=== PATIENT | male | born 1960 ===

== ENCOUNTER 2016-10-23 17:41 | Inpatient (IN) ==
--- NOTE | 2016-10-23 18:47 | Emergency Department Note ---
Naif Dos Santos Brittany, am scribing for, and in the presence of, Sena Mosqueda DO 18:46. IPanda Debra, DO, personally performed the services described in this documentation, ascribed by Rosana Disla in my presence, and it is both accurate and complete 847 . Arrival - Arrival Chief Complaint: Extremity Problem Stated Complaint: diabetic foot ulcer ED Nursing Triage Note: Arrived via ems from [facility].Pt reports having diabetic foot ulcer to left foot x 3 wks. Pt with hx of dm, htn. Pt reports swelling and drainage from left foot.States he was trying to heal it at home. Mode of Arrival: Stretcher Limitations: No Limitations Source: Patient, RN Notes Reviewed Time Seen by Provider: 10/23/16 18:29 - History of Present Illness HPI Narrative: Patient is a 56 y/o Lovely male presenting to the ED by EMS from [facility] for further evaluation of Diabetic Ulcer to the left foot. Patient c/o pain, swelling, and drainage to the left foot with an onset of 3 weeks. Patient reports he has been having this for about 3 weeks. He notes that he does not recall what he may have stepped on to cause a wound to his left foot. He states that he did not seek medical attention when symptoms first onset because he thought wound would heal on its own. He reports that he did have ETOH this morning. While at [facility] patient's WBC count was 17,000. Patient has a past medical history of Diabetes Mellitus, HTN. No other complaint/pain in the ED at this time. Allergies/Adverse Reactions: Allergies Allergy/AdvReac Type Severity Reaction Status Date / Time aspirin Allergy ANAPHYLAXIS Verified 06/18/16 12:53 Home Medications: Home Medications Medication Instructions Recorded Confirmed Type Lisinopril [Prinivil] 20 mg PO DAILY #30 tablet 06/18/16 Rx amLODIPine [Norvasc] 5 mg PO DAILY #30 tablet 06/18/16 Rx metFORMIN [Glucophage] 500 mg PO BID W/MEALS #60 tablet 06/18/16 Rx Review of System - Review of System 12 point system: reviewed and no additional remarkable complaints except as stated - Review of System Musculoskeletal: Present: joint swelling, leg pain (left foot) Skin: Present: change in color (erythema left foot) Medical,Surgical,& Family Hx - Medical History Cardio: History of: Hypertension Endocrine: History of: Diabetes Mellitus (NIDDM) - Social History Smoking Status: Unknown if ever smoked Frequency of Alcohol Use: None Type of Drug Use: None Exam Vital Signs: Vital Signs Temperature 98.0 F 10/23/16 17:41 Pulse Rate 110 H 10/23/16 18:43 Respiratory Rate 16 10/23/16 18:43 Blood Pressure 129/78 10/23/16 18:43 O2 Sat by Pulse Oximetry 100 10/23/16 18:43 - General General appearance: alert, in no apparent distress - Head Head exam: Present: atraumatic, normocephalic - Eye Eye exam: Present: PERRL, EOMI - ENT ENT exam: Present: mucous membranes moist, TM's normal bilaterally - Neck Neck exam: Present: full ROM, trachea midline. Absent: tenderness - Chest Chest inspection: Present: symmetric chest wall rise. Absent: tenderness - Respiratory Respiratory exam: Present: normal lung sounds bilaterally. Absent: rales, rhonchi, wheezes - Cardiovascular Cardiovascular exam: Present: normal rhythm, tachycardia, normal heart sounds. Absent: regular rate, murmur, rubs, gallop - Abdominal Exam Abdominal exam: Present: soft, normal bowel sounds. Absent: distention, tenderness - Extremities Exam Extremities exam: Present: full ROM - Expanded Lower Left Lower Foot/toe exam: Present: full ROM, erythema, other (malodorous, decubiti) - Back Exam Back exam: Present: full ROM. Absent: tenderness - Neurological Exam Neurological exam: Present: alert, oriented X3 - Psychiatric Psychiatric exam: Present: normal affect, normal mood - Skin Skin exam: Present: warm, dry Course Course Narrative: spoke with Dr High who agrees to admission. will have hospitalist as consult on pt for diabetes. Disposition Clinical Impression: Diabetes mellitus with foot ulcer and gangrene Case discussed with: patient Disposition: Still a Patient Condition: Stable Time of Disposition: 18:47
[2016-10-23] MEDS ORDERED: ACETAMINOPHEN 325 MG TABLET PO PRN (18:48)
[2016-10-23] MEDS ORDERED: ONDANSETRON 4 MG/2 ML VIAL IV PRN (18:48)
[2016-10-23] MEDS ORDERED: HYDROmorphone 2 MG/1 ML VIAL IV PRN (18:48)
--- NOTE | 2016-10-23 19:08 | Hospitalist Consult Note ---
<Payton Livingston - Last Filed: 10/23/16 19:04> Assessment and Plan - Time spent with patient Time spent with patient: Greater than 30 minutes (due to assessment, plan and documentation) (1) Diabetes mellitus with foot ulcer and gangrene Status: Acute Assessment and plan: admitted to Dr. High for possible surgery tomorrow Current Visit: Yes (2) HTN (hypertension) Status: Acute Current Visit: Yes (3) Diabetes Status: Acute Assessment and plan: accu-checks ac/hs sliding scale check a1c. Current Visit: Yes Qualifiers: Diabetes mellitus type: type 2 History of Present Illness - Data of Consult Patient: new to practice Consult date: 10/23/16 Requesting Physician: Nitesh High - Consult Narrative Reason for consult: med mgmt History of present illness: Mr. Cannon is a 56 year old male who presents to the ED with a left foot wound. Dr. High has admitted and is to take to surgery tomorrow for possible debridement per ER physician and patient. We were asked to see for medical management. He states that he is hypertensive and takes a BP pill for this and it has been under good control. He denies a hx of DM, CAD, CO, CVA, or malignancy. He is unsure of a family history of DM, but denies family history of CVA, CO or malignancy. No problems urinating or having bowel movements. Denies any hematuria or melena. He states that he has never been told that he has heart, liver or lung disease. However, his medication list indicates that he is diabetic and takes metformin 500 mg PO BID. Denies drinking, smoking or using illicits. He lives at home with his mother and functions independently. He is not , but does have several adult children. No labs are in [facility] at this time. I will order CBC, CMP, and A1c and we will follow along with Dr. High. Further plan and addendum to follow by Dr. Deepak Gan. CC: - Home Medications and Allergies Home Medications: Home Medications Medication Instructions Recorded Confirmed Type Lisinopril [Prinivil] 20 mg PO DAILY #30 tablet 06/18/16 10/23/16 Rx amLODIPine [Norvasc] 5 mg PO DAILY #30 tablet 06/18/16 10/23/16 Rx Allergies/Adverse Reactions: Allergies Allergy/AdvReac Type Severity Reaction Status Date / Time aspirin Allergy ANAPHYLAXIS Verified 06/18/16 12:53 Medical,Surgical,& Family Hx - Medical History Cardio: History of: Hypertension Endocrine: History of: Diabetes Mellitus (NIDDM) - Social History Smoking Status: Unknown if ever smoked Frequency of Alcohol Use: None Type of Drug Use: None Marital Status: Single Lives With:: Parent Functional capacity: independent ambulation - Constitutional Constitutional: Absent: chills, fever(s) - EENT Eyes: Absent: blurry vision, diplopia Ears: Absent: decreased hearing, tinnitus Nose, mouth and throat: Absent: dysphagia, headache(s) - Cardiovascular Cardiovascular: Absent: chest pain at rest, dyspnea on exertion - Respiratory Respiratory: Absent: cough, dyspnea, hemoptysis - Gastrointestinal Gastrointestinal: Absent: abdominal pain, melena, nausea, vomiting - Genitourinary Genitourinary: Absent: difficulty urinating, flank pain, hematuria - Musculoskeletal Musculoskeletal: Absent: arthralgias, back pain - Neurological Neurological: Absent: confusion, dizziness - Psychiatric Psychiatric: Absent: anxiety, confusion, depression - Endocrine Endocrine: Absent: cold intolerance, heat intolerance - Hematologic/Lymphatic Hematologic/Lymphatic: Absent: easy bleeding, easy bruising Exam - Constitutional Vitals: Period Temp Pulse Resp BP Sys/Garcia Pulse Ox Last 24 Hr 98.0 F 105-117 16-17 129-154/75-81 97-100 General appearance: normal weight, no acute distress - Head Head exam: Present: normal inspection, normocephalic - Eye Eye exam: Present: EOMI. Absent: scleral icterus Pupils: Present: ALFREDO, normal accommodation - ENT ENT exam: Present: normal exam, normal oropharynx - Neck Neck exam: Present: normal inspection. Absent: lymphadenopathy - Respiratory Respiratory exam: Present: clear to auscultation bilaterally. Absent: accessory muscle use - Cardiovascular Cardiovascular exam: Present: regular rate and rhythm. Absent: carotid bruit - GI/Abdominal GI/Abdominal exam: Present: normal bowel sounds. Absent: tenderness - Extremities Exam Extremities exam: Present: other (left foot is wrapped. he states that his wound is draining. right lower extremity normal. ) - Back Exam Back exam: Present: normal inspection. Absent: muscle spasm - Neurological Exam Neurological exam: Present: alert, oriented X3 - Psychiatric Psychiatric exam: Present: normal affect, normal mood - Skin Skin exam: Present: normal color, warm, dry, intact Specialty Discharge - Follow Up or Referrals - Discharge Medications No Action Lisinopril [Prinivil] 20 mg PO DAILY #30 tablet amLODIPine [Norvasc] 5 mg PO DAILY #30 tablet <Bg Boone - Last Filed: 10/23/16 19:46> History of Present Illness - Consult Narrative History of present illness: Mr. Cannon is a 56 year old male CC: Nitesh High MD Exam - Constitutional Vitals: Period Temp Pulse Resp BP Sys/Garcia Pulse Ox Last 24 Hr 105 20 129/73 97 Results - Impressions I have reviewed this case with the nurse practitioner examined the patient taken a history I agree with the current plan and history no new recommendations other than to follow for his diabetes and watch perioperatively
[2016-10-23] MEDS ORDERED: DEXTROSE 50% 25 GM/50 ML VIAL IV PRN (19:12)
[2016-10-23] MEDS ORDERED: GLUCAGON 1 MG VIAL IM PRN (19:12)
[2016-10-23] MEDS: INSULIN LISPRO 100 UNIT/ML SUBCUT SCH (20:26)
[2016-10-23] MEDS ORDERED: VANCOMYCIN INJ 1,250 MG in SODIUM CHLORIDE 0.9% 250 ML IV ONE (20:30)
[2016-10-23 20:50] LABS: Albumin 2.1 G/DL (3.4-5.0); Calcium 7.8 MG/DL (8.5-10.1); Osmolality,Calculated 264.2 MOS/KG (273-304); Potassium 3.9 MMOL/L (3.5-5.1)
--- NOTE | 2016-10-23 21:31 | XRay Report ---
Referring Physician: Bg Boone Exam: XR chest 1V portable Date: October 23, 2016 at 9 PM Reason: Shortness of breath Comparison: Chest PA lateral June 18, 2016 Findings: The cardiac silhouette is upper normal in size. No focal consolidation, pneumothorax or pleural fluid is identified. There is degenerative change at the right acromioclavicular joint and possibly a remote injury in this area. No acute osseous process is seen. Impression: No acute cardiopulmonary process is identified. PROCEDURE INTERPRETED AT [facility] DEPARTMENT OF RADIOLOGY Final Report Signed by: Dr. Geovanni Fernandes
[2016-10-23] MEDS: SODIUM CHLORIDE 0.45% 1,000 ML IV SCH (22:44)
[2016-10-24 06:20] LABS: Basophils % 0.2 % (0.0-0.8); Eosinophils # 0.1 10*3/uL (0.0-0.87); Eosinophils % 0.3 % (0.00-10.9); Hematocrit 30.6 VOL% (42.0-52.0); Hemoglobin 10.5 GM/DL (14.0-18.0); Immature Granulocytes % 1.4 %; Immature Granulocytes Absolute 0.21 #; Lymphocytes # 1.3 10*3/uL (1.4-4.0); Lymphocytes % 8.5 % (21.2-54.2); Mean Corpuscular HGB Conc 34.3 GM/DL (32-36); Mean Corpuscular Hemoglobin 30 PG (27-34); Mean Corpuscular Volume 88.2 FL (87-102); Mean Platelet Volume 9.8 FL (9.6-12.0); Monocytes # 1.5 10*3/uL (0.11-0.8); Monocytes % 9.7 % (1.7-12.7); Neutrophils # 12.1 10*3/uL (1.4-7.4); Neutrophils % 79.9 % (38.7-73.9); Platelet Count 387 10*3/uL (130-400); Red Blood Count 3.47 10*6/uL (3.8-5.5); Red Cell Distribution Width 12.2 % (9.3-17.3); White Blood Count 15.2 10*3/uL (4.5-13.71)
[2016-10-24 06:46] LABS: Band Neutrophils 7 % (0-10); Hypochromasia Slight; Lymphocytes 6 % (20-55); Platelet Estimate Adequate; Segmented Neutrophils 73 % (50-85); Total Cells Counted 100
[2016-10-24 06:58] LABS: Albumin 2.1 G/DL (3.4-5.0); Bilirubin,Total 0.6 MG/DL (0.2-1.0); Calcium 7.7 MG/DL (8.5-10.1); Osmolality,Calculated 263.1 MOS/KG (273-304); Potassium 4.5 MMOL/L (3.5-5.1); Total Protein 7.2 G/DL (6.4-8.3)
[2016-10-24] MEDS: INSULIN LISPRO 100 UNIT/ML SUBCUT SCH (08:03)
--- NOTE | 2016-10-24 08:20 | General Surg History&Physical ---
Assessment and Plan (1) Diabetes mellitus with foot ulcer and gangrene Status: Acute Assessment and plan: Mr. Cannon has some obvious infection involving the left foot which may be related to diabetes although he denies a history of diabetes Current Visit: Yes History of Present Illness Chief complaint: infected left foot History of present illness: Mr. Cannon is a 56 year old male Mr. Cannon is 56-year-old man who developed an infection of his left foot several days ago it is been rapidly progressive he was seen at [facility] and referred here last night. Patient interestingly reports not having diabetes only health problem is some mild hypertension. He's not smoked for over 17 years. Does not recall any injury to his foot. He clearly has infection of the midfoot with necrosis of the skin overlying the dorsal foot and pulse in this area. I've advised the patient he may eventually require amputation but I do not believe it is required at this point we will make every effort to salvage his foot recommended debridement and drainage today he understands and agrees Home Medications Medication Instructions Recorded Confirmed Type Lisinopril [Prinivil] 20 mg PO DAILY #30 tablet 06/18/16 10/23/16 Rx amLODIPine [Norvasc] 5 mg PO DAILY #30 tablet 06/18/16 10/23/16 Rx Allergies Allergy/AdvReac Type Severity Reaction Status Date / Time aspirin Allergy ANAPHYLAXIS Verified 06/18/16 12:53 Medical,Surgical,& Family Hx - Medical History Cardio: History of: Hypertension Endocrine: History of: Diabetes Mellitus (NIDDM) (patient reports to me that he is not diabetic) Other: History of: Miscellaneous Medical Problems (sinus problems) - Social History Smoking Status: Unknown if ever smoked Frequency of Alcohol Use: None Type of Drug Use: None Exam - Constitutional Vitals: Period Temp Pulse Resp BP Sys/Garcia Pulse Ox Last 24 Hr 97.2 F-98.6 F 88-109 18-20 125-147/61-81 97-99 General appearance: normal weight, no acute distress - Head Head exam: Present: normal inspection - Eye Eye exam: Present: EOMI Pupils: Present: ALFREDO - ENT ENT exam: Present: other (missing teeth) - Neck Neck exam: Present: normal inspection - Respiratory Respiratory exam: Present: clear to auscultation bilaterally - Cardiovascular Cardiovascular exam: Present: RRR - GI/Abdominal GI/Abdominal exam: Present: soft - Expanded Left Lower Foot/Toe exam: Present: swelling, erythema (as an area approximately 6 x 10 or 12 cm of frankly necrotic skin with purulence underneath there may be a puncture wound between the first and second toes on the plantar surface of the foot generally is swollen and there may well be drawn's a good bit of subcutaneous infection over the dorsum of the foot) Neuro vascular tendon exam: Present: no vascular compromise - Neurological Exam Neurological exam: Present: alert, oriented X3 Speech: Present: normal - Skin Skin exam: Present: dry 12 point system: reviewed and no additional remarkable complaints except as stated Results - Labs CBC & BMP: 10/24/16 05:41 10/24/16 05:41
[2016-10-24] MEDS: PANTOPRAZOLE 40 MG TABLET PO SCH (08:36)
[2016-10-24] MEDS: VANCOMYCIN INJ 1,000 MG in SODIUM CHLORIDE 0.9% 250 ML IV SCH ×2 (08:41→20:52)
--- NOTE | 2016-10-24 09:20 | EKG Report ---
Stationary ECG Study 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
[2016-10-24] MEDS ORDERED: ROPIVACAINE 0.5% 30 ML VIAL ONE (09:36)
[2016-10-24] MEDS ORDERED: LIDOCAINE 100 MG/5 ML SYRINGE ONE ×3 (09:36→11:12)
--- NOTE | 2016-10-24 09:38 | XRay Report ---
XR foot 2V LT Indication: Infection Comparison: Left foot x-ray dated October 23, 2016 Technique: Frontal and lateral views of left foot Findings: Significant subcutaneous emphysema is noted about the dorsum of the left foot consistent with history of infection. Soft tissue swelling noted about the forefoot and midfoot. There is a 5 mm metallic foreign body noted along the soft tissues of the plantar aspect of the first MTP joint. No acute fracture or dislocation demonstrated. Subtle erosion of the head of the second metatarsal and proximal aspect of the proximal phalanx of the second digit concerning for osteomyelitis. IMPRESSION: As above. PROCEDURE INTERPRETED AT [facility] DEPARTMENT OF RADIOLOGY Final Report Signed by: Dr Ambrose Walters
[2016-10-24] MEDS ORDERED: PROPOFOL 200 MG/20 ML VIAL IV ONE ×2 (10:11→11:11)
[2016-10-24] MEDS: LACTATED RINGERS 1,000 ML IV SCH ×2 (10:15→19:49)
--- NOTE | 2016-10-24 10:21 | Anesthesia ---
Anesthesia Procedures - Nerve Blocks Nerve Block Consent: Requested by surgeon for postoperative pain control Surgical Procedure: Belkis Left foot Main Anesthetic: other (mac) Location: Pre-op area Position: semi sitting Type of Block: Left: Popliteal Patinet Consent: Patinet consented for above nerve block., Risks and benefits were discussed with patient,including infection,, bleeding,injury to surrounding structures, seizure, temporary nerve, Patient understands and accepts potential risks/benefits and agrees to, proceed. Patient Consent:: verbal ASA Monitors on: pulse oximetry, EKG Local Anesthetic: Sterile technique with 2% Chlorhexidine / Betadine, 0.5% Ropivicaine (15 cc), other (Lidocaine 2%) Ultrasound Used to: Recognize Landmarks (visualize popliteal nerve ) Interscalene / Femoral BLK: 2" Stimuplex 22G needle used for posterior and inplane approach, Visualize local anesthetic spread, no vascular puncture indentified Nerve Stimulator used: No Inject slowly in 5cc increments with:: Negative aspitation of heme, Paresthesia +/= (none) Patient vitals signs stable throughout procedure.: Patient tolertaed the procedure well with no apparent complications.
[2016-10-24] MEDS ORDERED: HYDROmorphone 2 MG/1 ML VIAL IV PRN ×3 (10:22→11:10)
[2016-10-24] MEDS ORDERED: ONDANSETRON 4 MG/2 ML VIAL IV PRN (10:22)
[2016-10-24] MEDS ORDERED: MIDAZOLAM 2 MG/2 ML VIAL ONE (11:12)
[2016-10-24] MEDS ORDERED: fentaNYL 100 MCG/2 ML VIAL ONE (11:12)
[2016-10-24] MEDS ORDERED: GLUCAGON 1 MG VIAL IM PRN (11:17)
[2016-10-24] MEDS ORDERED: DEXTROSE 50% 25 GM/50 ML VIAL IV PRN (11:17)
--- NOTE | 2016-10-24 11:41 | Anesthesia ---
Anesthesia Post OP - Post Ansesthetic Evaluation Patient seen in post op: Yes Resp: within normal limits CV: within normal limits Mental: within normal limits Temp: within normal limits [id number]: within normal limits Nausea and Vomiting: within normal limits Pain: within normal limits
[2016-10-24] MEDS: INSULIN REGULAR 100 UNIT/ML SUBCUT SCH ×3 (12:38→20:51)
--- NOTE | 2016-10-24 14:20 | Hospitalist Progress Note ---
Assessment and Plan (1) Diabetes mellitus with foot ulcer and gangrene Status: Acute Assessment and plan: We will continue the patient's sliding scale insulin for now. Blood glucoses adequately controlled and should improve. Blood pressure is marginal and we will add oral Procardia as required for elevated blood pressure. We will recheck electrolytes tomorrow. Current Visit: Yes (2) HTN (hypertension) Status: Acute Current Visit: Yes Hospitalist: Subjective Interval history: The patient had debridement of the left foot today. He is resting comfortably in bed presently. Exam - Constitutional Vitals: Period Temp Pulse Resp BP Sys/Garcia Pulse Ox Last 24 Hr 97.2 F-98.6 F 75-109 16-20 119-163/60-90 97-100 General appearance: no acute distress - Respiratory Respiratory exam: Present: clear to auscultation bilaterally - Cardiovascular Cardiovascular exam: Present: regular rate and rhythm - GI/Abdominal GI/Abdominal exam: Present: normal bowel sounds Results - Labs CBC & BMP: 10/24/16 05:41 10/24/16 05:41 Lab Results: I have reviewed the past 24 hour labs Quality Measures - VTE Contraindication to Pharmacological VTE Prophylaxis: High Risk of Bleeding Specialty Discharge - Follow Up or Referrals - Discharge Medications No Action Lisinopril [Prinivil] 20 mg PO DAILY #30 tablet amLODIPine [Norvasc] 5 mg PO DAILY #30 tablet
--- NOTE | 2016-10-24 15:05 | Operative Note ---
SURGEON: Nitesh High MD ANESTHESIA: Dr. Valle. Ankle block. PREOPERATIVE DIAGNOSIS: DIABETIC INFECTION WITH NECROTIZING FASCIITIS ON THE DORSUM OF THE LEFT ALLEN T. POSTOPERATIVE DIAGNOSIS: NECROTIZING FASCIITIS AND INFECTION WITH FOREIGN BODY IN THE PLANTAR SURFA CE OF THE FOOT. OPERATION PERFORMED: Debridement of necrotizing fasciitis of the dorsum of the foot, drainage of ab scess, removal of foreign body, broken glass. INDICATION FOR THE PROCEDURE: Mr. Cannon is a 56-year-old man who comes in. Reportedly he does not h ave diabetes, but it does appear that he has. He has developed a marked infection involving the wojciech sum of his left foot with liza gangrene. There is gas in the subcutaneous tissue. There is also a foreign body seen on the plantar surface of the foot. I have recommended debridement with drainage as necessary. He understands the procedure and the plan and agrees. DESCRIPTION OF THE PROCEDURE: After the patient received ankle block, his left foot is prepped with Betadine soap and solution and draped in the usual fashion. There is a small puncture wound on the plantar surface of the foot. It is open, debrided, and there is a piece of jagged corine glass that i s removed. This abscess then seems to go between the fist and second metatarsals on the dorsum of t he foot. There is extensive gangrenous changes. He has an obvious necrotizing fasciitis on the dorsu m of the foot. I debride skin, subcutaneous tissue, some tendon from the dorsum of the foot where I essentially have opened from just on the lateral aspect of the first metatarsal to the fifth metatar derek and back up to the ankle. I removed all grossly infected tissue and have cultures that are done . I sent the tissue for tissue cultures. I get back to healthy tissue. The patient does have good bleeding and he had normal pulses in the other foot. I then opened widely between the first and s econd metatarsals. The entire foot is then irrigated with peroxide, packed with Iodoform in the absc ess of the first metatarsals. I put Dakin's moist Kerlix roll on the dorsum of the foot, around the foot. It is then dressed with ABD pads, a cast padding, and an Efrain bandage. Blood loss is estimated at 150 cc. Sponge, needle, and instrument counts are correct. The patient is taken to recovery in stable condition.
[2016-10-24] MEDS: SODIUM CHLORIDE 0.45% 1,000 ML IV SCH ×3 (15:53→23:55)
[2016-10-25 04:43] LABS: Basophils % 0.3 % (0.0-0.8); Eosinophils # 0.1 10*3/uL (0.0-0.87); Eosinophils % 0.6 % (0.00-10.9); Hematocrit 26.3 VOL% (42.0-52.0); Hemoglobin 8.8 GM/DL (14.0-18.0); Immature Granulocytes % 1.4 %; Immature Granulocytes Absolute 0.16 #; Lymphocytes # 1.5 10*3/uL (1.4-4.0); Mean Corpuscular HGB Conc 33.5 GM/DL (32-36); Mean Corpuscular Hemoglobin 30 PG (27-34); Mean Corpuscular Volume 89.8 FL (87-102); Mean Platelet Volume 9.8 FL (9.6-12.0); Monocytes # 1.7 10*3/uL (0.11-0.8); Monocytes % 14.5 % (1.7-12.7); Neutrophils # 8.3 10*3/uL (1.4-7.4); Neutrophils % 70.2 % (38.7-73.9); Platelet Count 357 10*3/uL (130-400); Red Blood Count 2.93 10*6/uL (3.8-5.5); Red Cell Distribution Width 12.4 % (9.3-17.3); White Blood Count 11.8 10*3/uL (4.5-13.71)
[2016-10-25 05:05] LABS: Calcium 7.5 MG/DL (8.5-10.1); Magnesium 1.8 MG/DL (1.8-2.4); Osmolality,Calculated 265.8 MOS/KG (273-304); Potassium 4.3 MMOL/L (3.5-5.1)
[2016-10-25 06:05] LABS: Platelet Estimate Increased
[2016-10-25] MEDS: SODIUM CHLORIDE 0.45% 1,000 ML IV SCH (09:23)
[2016-10-25] MEDS: PANTOPRAZOLE 40 MG TABLET PO SCH (09:24)
[2016-10-25] MEDS: INSULIN REGULAR 100 UNIT/ML SUBCUT SCH ×4 (09:24→23:15)
[2016-10-25] MEDS: LISINOPRIL 20 MG TABLET PO SCH (09:24)
[2016-10-25] MEDS: VANCOMYCIN INJ 1,000 MG in SODIUM CHLORIDE 0.9% 250 ML IV SCH ×2 (09:24→22:33)
[2016-10-25] MEDS: amLODIPine 5 MG TABLET PO SCH (09:24)
--- NOTE | 2016-10-25 12:26 | Event Note ---
This patient was admitted with a necrotizing infection of his left forefoot on the dorsal aspect. Dr. High taken to surgery and did an extensive debridement yesterday. His labs look acceptable this morning. He is a little bit hyponatremic and his creatinine has gone up a little bit. He is not tachycardic and his vital signs were unremarkable. I examined his wound today and there is no invasive gangrenous infection that needs to be debrided. There is no purulent drainage. There is a slight foul odor to the foot but it doesn' t appear to require any further debridement today. We will continue his current care and I'll check on him again tomorrow.
[2016-10-25] MEDS: SODIUM HYPOCHLORITE 0.25% IRRIG 473 ML BOTTLE TOP SCH (12:34)
--- NOTE | 2016-10-25 16:06 | Hospitalist Progress Note ---
Assessment and Plan (1) Diabetes mellitus with foot ulcer and gangrene Status: Acute Assessment and plan: We will continue the patient's sliding scale insulin for now. I'm going to add glipizide. Blood glucoses adequately controlled and should improve. Blood pressure control is improved and we will continue oral Procardia as required for elevated blood pressure. We will recheck electrolytes tomorrow. Current Visit: Yes (2) HTN (hypertension) Status: Acute Current Visit: Yes Hospitalist: Subjective Interval history: The patient is admitted to the hospital with left foot infection. Sodium is mildly decreased today. I'm going to change fluid to normal saline. I had a discussion with the patient concerning his diabetic neuropathy. Exam - Constitutional Vitals: Period Temp Pulse Resp BP Sys/Garcia Pulse Ox Last 24 Hr 97.4 F-99.6 F 79-92 12-20 141-154/81-94 97-100 Exam: Constitutional System: Minimal distress. No tremulousness. Head: Normocephalic, atraumatic. Ears, Nose and Throat System: No evidence of Otitis or Mastoiditis. No epistaxis or discharge Eyes System: Pupils equal, round, and reactive. Extraocular muscles intact. Neck: Supple, without adenopathy, No jugular venous distention. No thyromegaly , neck mass, or prior surgery apparent. Respiratory System: Chest clear to auscultation. Cardiovascular System: Heart with regular rate and rhythm. No murmur. GI System: Abdomen soft, nontender. Normoactive bowel sounds present. Results - Labs CBC & BMP: 10/25/16 03:46 10/25/16 03:46 Lab Results: I have reviewed the past 24 hour labs Quality Measures - VTE Contraindication to Pharmacological VTE Prophylaxis: High Risk of Bleeding Specialty Discharge - Follow Up or Referrals - Discharge Medications No Action Lisinopril [Prinivil] 20 mg PO DAILY #30 tablet amLODIPine [Norvasc] 5 mg PO DAILY #30 tablet
[2016-10-25] MEDS: glipiZIDE 5 MG TABLET PO SCH (16:44)
[2016-10-25] MEDS: SODIUM CHLORIDE 0.9% 1,000 ML IV SCH (16:46)
[2016-10-25] MEDS: LACTATED RINGERS 1,000 ML IV SCH (22:32)
[2016-10-26 04:58] LABS: Basophils % 0.3 % (0.0-0.8); Eosinophils % 0.3 % (0.00-10.9); Hematocrit 27.7 VOL% (42.0-52.0); Hemoglobin 9.3 GM/DL (14.0-18.0); Immature Granulocytes % 1.4 %; Immature Granulocytes Absolute 0.19 #; Lymphocytes # 2.4 10*3/uL (1.4-4.0); Lymphocytes % 18.4 % (21.2-54.2); Mean Corpuscular HGB Conc 33.6 GM/DL (32-36); Mean Corpuscular Hemoglobin 31 PG (27-34); Mean Corpuscular Volume 90.8 FL (87-102); Mean Platelet Volume 11.3 FL (9.6-12.0); Monocytes # 1.5 10*3/uL (0.11-0.8); Monocytes % 11.5 % (1.7-12.7); Neutrophils # 8.9 10*3/uL (1.4-7.4); Neutrophils % 68.1 % (38.7-73.9); Platelet Count 234 10*3/uL (130-400); Red Blood Count 3.05 10*6/uL (3.8-5.5); Red Cell Distribution Width 12.5 % (9.3-17.3); White Blood Count 13.1 10*3/uL (4.5-13.71)
[2016-10-26 05:11] LABS: Magnesium 1.9 MG/DL (1.8-2.4); Osmolality,Calculated 274.8 MOS/KG (273-304); Potassium 4.2 MMOL/L (3.5-5.1)
[2016-10-26 06:01] LABS: Band Neutrophils 1 % (0-10); Eosinophils 1 % (0-10)
[2016-10-26] MEDS: SODIUM CHLORIDE 0.9% 1,000 ML IV SCH ×2 (06:11→22:31)
[2016-10-26 06:12] LABS: Total Cells Counted 100
[2016-10-26 06:13] LABS: Anisocytosis 1+; Lymphocytes 17 % (20-55); Microcytosis 1+; Platelet Estimate Normal; Segmented Neutrophils 71 % (50-85)
[2016-10-26] MEDS: glipiZIDE 5 MG TABLET PO SCH ×2 (09:42→16:15)
[2016-10-26] MEDS: INSULIN REGULAR 100 UNIT/ML SUBCUT SCH ×4 (09:42→20:33)
[2016-10-26] MEDS: LISINOPRIL 20 MG TABLET PO SCH (09:43)
[2016-10-26] MEDS: PANTOPRAZOLE 40 MG TABLET PO SCH (09:43)
[2016-10-26] MEDS: amLODIPine 5 MG TABLET PO SCH (09:43)
[2016-10-26] MEDS: SODIUM CHLORIDE 0.45% 1,000 ML IV SCH (10:10)
[2016-10-26] MEDS: LACTATED RINGERS 1,000 ML IV SCH (12:24)
[2016-10-26] MEDS: SODIUM HYPOCHLORITE 0.25% IRRIG 473 ML BOTTLE TOP SCH (12:45)
--- NOTE | 2016-10-26 12:58 | Event Note ---
No events overnight. Patient's pain is well-controlled. Afebrile. Vital signs normal. Wound appears to be improving with dressing changes. No ascending infection is present. The odor is decreased. Labs are unremarkable and looks better than yesterday. Continue current care.
[2016-10-26] MEDS: LEVOFLOXACIN INJ 750 MG in PREMIX 1 EACH IV SCH (13:40)
--- NOTE | 2016-10-26 14:12 | Hospitalist Progress Note ---
Assessment and Plan (1) Diabetes mellitus with foot ulcer and gangrene Status: Acute Assessment and plan: The patient's glycemic control is improved with oral antidiabetic medication, once daily long-acting insulin, and sliding scale short acting insulin. We will continue the present regimen and continue to monitor blood pressure. Current Visit: Yes (2) HTN (hypertension) Status: Acute Current Visit: Yes Hospitalist: Subjective Interval history: Mr. Cannon continues recovery from his wound surgery. The patient's carbohydrate intake is stabilizing. Glucose control is improving on present regimen Exam - Constitutional Vitals: Period Temp Pulse Resp BP Sys/Garcia Pulse Ox Last 24 Hr 97.9 F-100.1 F 81-89 18-20 117-149/61-77 93-98 Exam: Constitutional System: Minimal distress. No tremulousness. Head: Normocephalic, atraumatic. Ears, Nose and Throat System: No evidence of Otitis or Mastoiditis. No epistaxis or discharge Eyes System: Pupils equal, round, and reactive. Extraocular muscles intact. Neck: Supple, without adenopathy, No jugular venous distention. No thyromegaly , neck mass, or prior surgery apparent. Respiratory System: Chest clear to auscultation. Cardiovascular System: Heart with regular rate and rhythm. No murmur. GI System: Abdomen soft, nontender. Normoactive bowel sounds present. Results - Labs CBC & BMP: 10/26/16 03:41 10/26/16 03:41 Lab Results: I have reviewed the past 24 hour labs Quality Measures - VTE Contraindication to Pharmacological VTE Prophylaxis: High Risk of Bleeding Specialty Discharge - Follow Up or Referrals - Discharge Medications No Action Lisinopril [Prinivil] 20 mg PO DAILY #30 tablet amLODIPine [Norvasc] 5 mg PO DAILY #30 tablet
[2016-10-26] MEDS: VANCOMYCIN INJ 1,000 MG in SODIUM CHLORIDE 0.9% 250 ML IV SCH (15:18)
[2016-10-27] MEDS: NIFEdipine 10 MG CAPSULE PO PRN (03:52)
[2016-10-27 06:31] LABS: Calcium 7.6 MG/DL (8.5-10.1); Magnesium 1.5 MG/DL (1.8-2.4)
[2016-10-27 06:32] LABS: Osmolality,Calculated 287.1 MOS/KG (273-304); Potassium 3.7 MMOL/L (3.5-5.1)
[2016-10-27 08:02] LABS: Basophils % 0.3 % (0.0-0.8); Eosinophils % 0.3 % (0.00-10.9); Hematocrit 28.1 VOL% (42.0-52.0); Hemoglobin 9.6 GM/DL (14.0-18.0); Immature Granulocytes % 1.5 %; Immature Granulocytes Absolute 0.13 #; Lymphocytes # 1.6 10*3/uL (1.4-4.0); Lymphocytes % 18.1 % (21.2-54.2); Mean Corpuscular HGB Conc 34.2 GM/DL (32-36); Mean Corpuscular Hemoglobin 31 PG (27-34); Mean Corpuscular Volume 89.2 FL (87-102); Mean Platelet Volume 9.8 FL (9.6-12.0); Monocytes # 1.2 10*3/uL (0.11-0.8); Monocytes % 13.8 % (1.7-12.7); Neutrophils # 5.7 10*3/uL (1.4-7.4); Platelet Count 374 10*3/uL (130-400); Red Blood Count 3.15 10*6/uL (3.8-5.5); Red Cell Distribution Width 12.7 % (9.3-17.3); White Blood Count 8.7 10*3/uL (4.5-13.71)
--- NOTE | 2016-10-27 08:50 | Event Note ---
Mr. Cannon is foot looks better I do not see progression of the infection we got a ways to go to get it to heal there is some exposed tendon that likely will have to be removed at all long-term basis or still working all cultures he has at least 3 different bacteria don't have an identification her sensitivity S allow continual or doing for now will work with wound care and start making a plan for long-term outpatient therapy to allow this to heal at some point skin graft may be appropriate
[2016-10-27] MEDS: INSULIN REGULAR 100 UNIT/ML SUBCUT SCH ×4 (08:53→20:04)
[2016-10-27] MEDS: amLODIPine 5 MG TABLET PO SCH (08:54)
[2016-10-27] MEDS: PANTOPRAZOLE 40 MG TABLET PO SCH (08:55)
[2016-10-27] MEDS: glipiZIDE 5 MG TABLET PO SCH ×2 (08:55→16:20)
[2016-10-27] MEDS: LISINOPRIL 20 MG TABLET PO SCH (08:55)
[2016-10-27] MEDS: VANCOMYCIN INJ 1,000 MG in SODIUM CHLORIDE 0.9% 250 ML IV SCH (08:57)
[2016-10-27] MEDS: SODIUM HYPOCHLORITE 0.25% IRRIG 473 ML BOTTLE TOP SCH (09:00)
[2016-10-27 09:31] LABS: Hypochromasia 1+; Lymphocytes 17 % (20-55); Platelet Estimate Adequate; Segmented Neutrophils 75 % (50-85); Total Cells Counted 100
[2016-10-27] MEDS: LEVOFLOXACIN INJ 750 MG in PREMIX 1 EACH IV SCH (13:11)
[2016-10-27] MEDS: SODIUM CHLORIDE 0.9% 1,000 ML IV SCH (13:12)
--- NOTE | 2016-10-27 13:44 | Hospitalist Progress Note ---
Assessment and Plan (1) Diabetes mellitus with foot ulcer and gangrene Status: Acute Current Visit: Yes (2) HTN (hypertension) Status: Acute Current Visit: Yes (3) Diabetes Status: Acute Assessment and plan: We will continue to monitor his blood pressure and glucose control. And adjust as needed Current Visit: Yes Qualifiers: Diabetes mellitus type: type 2 Hospitalist: Subjective Interval history: Patient without complaints Exam - Constitutional Vitals: Period Temp Pulse Resp BP Sys/Garcia Pulse Ox Last 24 Hr 98.1 F-100.1 F 81-99 17-20 141-189/74-91 95-99 General appearance: normal weight - Head Head exam: Present: normal inspection - ENT ENT exam: Present: normal exam - Respiratory Respiratory exam: Present: clear to auscultation bilaterally - Cardiovascular Cardiovascular exam: Present: regular rate and rhythm - GI/Abdominal GI/Abdominal exam: Present: normal bowel sounds - Extremities Exam Extremities exam: Present: other (foot wound with dressing in place) Results - Labs CBC & BMP: 10/27/16 05:22 10/27/16 05:22 Quality Measures - VTE Contraindication to Pharmacological VTE Prophylaxis: High Risk of Bleeding Specialty Discharge - Follow Up or Referrals - Discharge Medications No Action Lisinopril [Prinivil] 20 mg PO DAILY #30 tablet amLODIPine [Norvasc] 5 mg PO DAILY #30 tablet
[2016-10-28] MEDS: VANCOMYCIN INJ 1,000 MG in SODIUM CHLORIDE 0.9% 250 ML IV SCH (03:50)
[2016-10-28] MEDS: SODIUM CHLORIDE 0.9% 1,000 ML IV SCH (03:50)
[2016-10-28] MEDS: PANTOPRAZOLE 40 MG TABLET PO SCH (08:32)
[2016-10-28] MEDS: LISINOPRIL 20 MG TABLET PO SCH (08:32)
[2016-10-28] MEDS: amLODIPine 5 MG TABLET PO SCH (08:32)
[2016-10-28] MEDS: glipiZIDE 5 MG TABLET PO SCH ×2 (08:32→15:46)
[2016-10-28] MEDS: INSULIN REGULAR 100 UNIT/ML SUBCUT SCH ×3 (08:33→15:46)
[2016-10-28] MEDS: NIFEdipine 10 MG CAPSULE PO PRN (08:33)
[2016-10-28] MEDS ORDERED: MAGNESIUM SULF RIDER 1 GM in PREMIX 1 EACH IV ONE (10:02)
--- NOTE | 2016-10-28 10:24 | Hospitalist Progress Note ---
Assessment and Plan (1) Diabetes mellitus with foot ulcer and gangrene Status: Acute Current Visit: Yes (2) HTN (hypertension) Status: Acute Current Visit: Yes (3) Diabetes Status: Acute Assessment and plan: We will continue to monitor his blood pressure and glucose control. And adjust as needed Current Visit: Yes Qualifiers: Diabetes mellitus type: type 2 Hospitalist: Subjective Interval history: Patient really has no complaints today other than his foot hurts from time to time Exam - Constitutional Vitals: Period Temp Pulse Resp BP Sys/Garcia Pulse Ox Last 24 Hr 98.1 F-99.9 F 81-88 18-20 141-160/74-89 96-100 General appearance: normal weight - Head Head exam: Present: normal inspection - ENT ENT exam: Present: normal exam - Respiratory Respiratory exam: Present: clear to auscultation bilaterally - Cardiovascular Cardiovascular exam: Present: regular rate and rhythm - GI/Abdominal GI/Abdominal exam: Present: normal bowel sounds - Extremities Exam Extremities exam: Present: other (foot wound with dressing in place) Results - Labs CBC & BMP: 10/27/16 05:22 10/27/16 05:22 Quality Measures - VTE Contraindication to Pharmacological VTE Prophylaxis: High Risk of Bleeding Specialty Discharge - Follow Up or Referrals - Discharge Medications No Action Lisinopril [Prinivil] 20 mg PO DAILY #30 tablet amLODIPine [Norvasc] 5 mg PO DAILY #30 tablet
--- NOTE | 2016-10-28 11:51 | Event Note ---
He is doing generally well but is, requires long-term care and continued antibiotic therapy and going to check with case management but it may be that we can arrange transfer back to the [facility] for this. My thoughts are that I'll developed some good granulation on the dorsum of the foot get the infection completely controlled and then probably put a skin graft on the dorsum of his foot in the next 3-4 weeks I've explained this plan to him and he agrees
[2016-10-28] MEDS: SODIUM HYPOCHLORITE 0.25% IRRIG 473 ML BOTTLE TOP SCH (20:49)
[2016-10-29] MEDS: VANCOMYCIN INJ 1,000 MG in SODIUM CHLORIDE 0.9% 250 ML IV SCH ×2 (00:02→14:33)
[2016-10-29] MEDS: INSULIN REGULAR 100 UNIT/ML SUBCUT SCH ×5 (00:03→20:38)
[2016-10-29] MEDS: glipiZIDE 5 MG TABLET PO SCH ×2 (09:34→16:23)
[2016-10-29] MEDS: amLODIPine 5 MG TABLET PO SCH (09:34)
[2016-10-29] MEDS: LISINOPRIL 20 MG TABLET PO SCH (09:34)
[2016-10-29] MEDS: PANTOPRAZOLE 40 MG TABLET PO SCH (09:34)
--- NOTE | 2016-10-29 10:52 | Event Note ---
Mr. Cannon is foot is cleaning up infection coming out of control starting have granulation there is some exposed extensor tendon may end up needing to be debrided away but I am very hopeful that we'll be able to allow this wound to heal and then probably put a skin graft on to complete healing in the next 3-4 weeks. I were looking into either transferred to [facility] or back to [facility] to continue wound care and vancomycin for now and probably be safely transferred to either 1 today or tomorrow
--- NOTE | 2016-10-29 14:04 | Physician Query Form ---
CLICK EDIT DOCUMENT TO SELECT QUERY ANSWER --> OK --> SIGN Jaci Medrano RN, CCDS Certified Clinical Marketing Professor W) [phone] (f) [phone] [email or web address] PROVIDERS: Make your selection(s) from the choices in EACH section by typing an "x" and enter comments in the comment section. Please use your independent medical judgment in providing your response. This request does not imply that any particular answer is desired or expected. CLINICAL INDICATORS: (Providers should not edit this section) The medical record indicates that the patient was admitted with a diabetic foot ulcer, had surgery --- found to have "Piece of jagged corine glass that is removed", Found to have "necrotizing fasciitis"/ "extensive gangrenous" and "had a discussion with the patient concerning his diabetic neuropathy". Based on the above, could you clarify the appropriate diagnosis, if significant , that supports the above abnormalities and additional evaluation, monitoring, and/or treatment rendered: ( ) Diabetic ulcer is a complication of DM Neuropathy with foreign material (Glass) ( ) Diabetic ulcer is not a complication of DM Neuropathy with foreign material (Glass) ( ) Diabetic ulcer is a complication of ( ) Other, please specify: Patient had a diabetic infection with necrotizing fasciitis although he had previously not been diagnosed as diabetic I am not aware that diabetic neuropathy had been made a diagnosis and he did not have a diabetic ulcer at the time of admission ( ) Clinically unable to determine COMMENTS: Use of terms such as suspected, likely, or probable (associated with a specific diagnosis that is being evaluated, monitored, or treated as if it exists) are acceptable and can be restated in the discharge summary if not ruled out. MTDD
--- NOTE | 2016-10-29 14:41 | Hospitalist Progress Note ---
Assessment and Plan (1) Diabetes mellitus with foot ulcer and gangrene Status: Acute Current Visit: Yes (2) HTN (hypertension) Status: Acute Current Visit: Yes (3) Diabetes Status: Acute Assessment and plan: We will continue to monitor his blood pressure and glucose control. And adjust as needed Current Visit: Yes Qualifiers: Diabetes mellitus type: type 2 Hospitalist: Subjective Interval history: Patient without complaints today Exam - Constitutional Vitals: Period Temp Pulse Resp BP Sys/Garcia Pulse Ox Last 24 Hr 97.3 F-98.8 F 81-98 16-20 100-167/66-89 95-100 General appearance: normal weight - Head Head exam: Present: normal inspection - ENT ENT exam: Present: normal exam - Respiratory Respiratory exam: Present: clear to auscultation bilaterally - Cardiovascular Cardiovascular exam: Present: regular rate and rhythm - GI/Abdominal GI/Abdominal exam: Present: normal bowel sounds - Extremities Exam Extremities exam: Present: other (foot wound with dressing in place) Results - Labs CBC & BMP: 10/27/16 05:22 10/27/16 05:22 Quality Measures - VTE Contraindication to Pharmacological VTE Prophylaxis: High Risk of Bleeding Specialty Discharge - Follow Up or Referrals - Discharge Medications No Action Lisinopril [Prinivil] 20 mg PO DAILY #30 tablet amLODIPine [Norvasc] 5 mg PO DAILY #30 tablet
[2016-10-30] MEDS: NIFEdipine 10 MG CAPSULE PO PRN (08:46)
[2016-10-30] MEDS: glipiZIDE 5 MG TABLET PO SCH ×2 (08:46→15:44)
[2016-10-30] MEDS: LISINOPRIL 20 MG TABLET PO SCH (08:46)
[2016-10-30] MEDS: INSULIN REGULAR 100 UNIT/ML SUBCUT SCH ×4 (08:46→21:35)
[2016-10-30] MEDS: amLODIPine 5 MG TABLET PO SCH (08:46)
[2016-10-30] MEDS: PANTOPRAZOLE 40 MG TABLET PO SCH (08:46)
[2016-10-30] MEDS: VANCOMYCIN INJ 1,000 MG in SODIUM CHLORIDE 0.9% 250 ML IV SCH (08:48)
[2016-10-30 09:50] LABS: Calcium 7.8 MG/DL (8.5-10.1); Osmolality,Calculated 288.4 MOS/KG (273-304)
--- NOTE | 2016-10-30 14:35 | Event Note ---
This is foot is improving and we will try adding a wound VAC to his care tomorrow as Cipro I thought I did so yesterday but is not on the chart days ago with Cipro and vancomycin for now this should give us good coverage of all 3 bacteria that have grown from the foot. The infected goes well we can place a wound VAC he may be ready for transfer back to [facility] on Thursday
--- NOTE | 2016-10-30 14:57 | Hospitalist Progress Note ---
Assessment and Plan (1) Diabetes mellitus with foot ulcer and gangrene Status: Acute Current Visit: Yes (2) HTN (hypertension) Status: Acute Current Visit: Yes (3) Diabetes Status: Acute Assessment and plan: We will continue to monitor his blood pressure and glucose control. And adjust as needed Current Visit: Yes Qualifiers: Diabetes mellitus type: type 2 Hospitalist: Subjective Interval history: Patient without complaints Exam - Constitutional Vitals: Period Temp Pulse Resp BP Sys/Garcia Pulse Ox Last 24 Hr 98.0 F-99.4 F 79-93 16-18 146-184/80-88 96-100 General appearance: normal weight - Head Head exam: Present: normal inspection - ENT ENT exam: Present: normal exam - Respiratory Respiratory exam: Present: clear to auscultation bilaterally - Cardiovascular Cardiovascular exam: Present: regular rate and rhythm - GI/Abdominal GI/Abdominal exam: Present: normal bowel sounds - Extremities Exam Extremities exam: Present: other (foot wound with dressing in place) Results - Labs CBC & BMP: 10/27/16 05:22 10/30/16 08:59 Quality Measures - VTE Contraindication to Pharmacological VTE Prophylaxis: High Risk of Bleeding Specialty Discharge - Follow Up or Referrals - Discharge Medications No Action Lisinopril [Prinivil] 20 mg PO DAILY #30 tablet amLODIPine [Norvasc] 5 mg PO DAILY #30 tablet
[2016-10-30] MEDS: CIPROFLOXACIN 500 MG TABLET PO SCH (21:36)
[2016-10-31] MEDS: VANCOMYCIN INJ 1,000 MG in SODIUM CHLORIDE 0.9% 250 ML IV SCH ×2 (02:08→22:10)
[2016-10-31 06:09] LABS: Calcium 7.7 MG/DL (8.5-10.1); Potassium 3.9 MMOL/L (3.5-5.1)
[2016-10-31] MEDS: INSULIN REGULAR 100 UNIT/ML SUBCUT SCH ×4 (08:33→22:09)
[2016-10-31] MEDS: PANTOPRAZOLE 40 MG TABLET PO SCH (08:34)
[2016-10-31] MEDS: CIPROFLOXACIN 500 MG TABLET PO SCH ×2 (08:34→22:09)
[2016-10-31] MEDS: glipiZIDE 5 MG TABLET PO SCH ×2 (08:34→16:23)
[2016-10-31] MEDS: LISINOPRIL 20 MG TABLET PO SCH (08:35)
[2016-10-31] MEDS: amLODIPine 10 MG TABLET PO SCH (08:35)
--- NOTE | 2016-10-31 09:38 | Event Note ---
Mr. Cannon was admitted with a necrotizing fasciitis of the dorsum of his foot secondary to his piece of glass in the plantar surface of his foot this tunneled up between the first and second toes and has left a large wound on the dorsum of the foot after cleaning this up a little bit more today removing a couple of the exposed and dried extensor tendons think he is not quite ready for the wound VAC we had thought that we could send him back to [facility] tomorrow with a wound VAC but I think we need to watch here just another few days we will go with irrigations and wet-to-dry dressings and the possibly Thursday the wound VAC will be an appropriate change dressing is infections under good control is currently on Cipro and vancomycin which will continue
--- NOTE | 2016-10-31 11:24 | Hospitalist Progress Note ---
Assessment and Plan (1) Diabetes mellitus with foot ulcer and gangrene Status: Acute Current Visit: Yes (2) HTN (hypertension) Status: Acute Current Visit: Yes (3) Diabetes Status: Acute Assessment and plan: We will continue to monitor his blood pressure and glucose control. And adjust as needed 10/31/16 and increase Norvasc and his blood pressure seems to be better. Glucose seems to be at adequately controlled at this time. We'll sign off call back if needed. Current Visit: Yes Qualifiers: Diabetes mellitus type: type 2 Hospitalist: Subjective Interval history: Pressures running a little bit on the higher side adjustments to medications Exam - Constitutional Vitals: Period Temp Pulse Resp BP Sys/Garcia Pulse Ox Last 24 Hr 97.6 F-99.5 F 81-93 18-19 136-158/73-94 96-99 General appearance: normal weight - Head Head exam: Present: normal inspection - ENT ENT exam: Present: normal exam - Respiratory Respiratory exam: Present: clear to auscultation bilaterally - Cardiovascular Cardiovascular exam: Present: regular rate and rhythm - GI/Abdominal GI/Abdominal exam: Present: normal bowel sounds - Extremities Exam Extremities exam: Present: other (foot wound with dressing in place) Results - Labs CBC & BMP: 10/27/16 05:22 10/31/16 05:11 Quality Measures - VTE Contraindication to Pharmacological VTE Prophylaxis: High Risk of Bleeding Specialty Discharge - Follow Up or Referrals - Discharge Medications No Action Lisinopril [Prinivil] 20 mg PO DAILY #30 tablet amLODIPine [Norvasc] 5 mg PO DAILY #30 tablet
[2016-10-31] MEDS: SODIUM HYPOCHLORITE 0.25% IRRIG 473 ML BOTTLE TOP SCH ×2 (12:06→12:16)
[2016-11-01] MEDS: INSULIN REGULAR 100 UNIT/ML SUBCUT SCH ×4 (08:49→20:13)
[2016-11-01] MEDS: glipiZIDE 5 MG TABLET PO SCH ×2 (08:50→17:48)
[2016-11-01] MEDS: LISINOPRIL 20 MG TABLET PO SCH (08:51)
[2016-11-01] MEDS: amLODIPine 10 MG TABLET PO SCH (08:51)
[2016-11-01] MEDS: PANTOPRAZOLE 40 MG TABLET PO SCH (08:51)
[2016-11-01] MEDS: CIPROFLOXACIN 500 MG TABLET PO SCH ×2 (08:52→20:13)
[2016-11-01] MEDS: SODIUM HYPOCHLORITE 0.25% IRRIG 473 ML BOTTLE TOP SCH (09:24)
--- NOTE | 2016-11-01 09:34 | Event Note ---
11/01/2016 Patient's afebrile the wound on his foot looks pretty clean with some good granulating tissue but some exposed tendon still present. He needs good wound care keep this wound moist tendons and continued present antibiotic care. He will eventually need a skin graft this area for coverage
[2016-11-01] MEDS: VANCOMYCIN INJ 1,000 MG in SODIUM CHLORIDE 0.9% 250 ML IV SCH (14:23)
[2016-11-02 05:28] LABS: Basophils # 0.1 10*3/uL (0.0-0.2); Basophils % 0.6 % (0.0-0.8); Eosinophils # 0.2 10*3/uL (0.0-0.87); Eosinophils % 2.5 % (0.00-10.9); Hematocrit 27.6 VOL% (42.0-52.0); Hemoglobin 9.2 GM/DL (14.0-18.0); Immature Granulocytes % 0.4 %; Immature Granulocytes Absolute 0.03 #; Lymphocytes # 1.9 10*3/uL (1.4-4.0); Lymphocytes % 23.1 % (21.2-54.2); Mean Corpuscular HGB Conc 33.3 GM/DL (32-36); Mean Corpuscular Hemoglobin 30 PG (27-34); Mean Corpuscular Volume 91.1 FL (87-102); Mean Platelet Volume 8.6 FL (9.6-12.0); Monocytes # 0.7 10*3/uL (0.11-0.8); Monocytes % 8.2 % (1.7-12.7); Neutrophils # 5.5 10*3/uL (1.4-7.4); Neutrophils % 65.2 % (38.7-73.9); Platelet Count 451 10*3/uL (130-400); Red Blood Count 3.03 10*6/uL (3.8-5.5); Red Cell Distribution Width 12.7 % (9.3-17.3); White Blood Count 8.4 10*3/uL (4.5-13.71)
[2016-11-02 06:40] LABS: Calcium 8.1 MG/DL (8.5-10.1); Magnesium 1.3 MG/DL (1.8-2.4); Osmolality,Calculated 284.5 MOS/KG (273-304); Potassium 3.6 MMOL/L (3.5-5.1)
[2016-11-02] MEDS: INSULIN REGULAR 100 UNIT/ML SUBCUT SCH ×4 (08:32→21:10)
[2016-11-02] MEDS: LISINOPRIL 20 MG TABLET PO SCH (08:34)
[2016-11-02] MEDS: amLODIPine 10 MG TABLET PO SCH (08:34)
[2016-11-02] MEDS: glipiZIDE 5 MG TABLET PO SCH ×2 (08:34→16:46)
[2016-11-02] MEDS: PANTOPRAZOLE 40 MG TABLET PO SCH (08:35)
[2016-11-02] MEDS: CIPROFLOXACIN 500 MG TABLET PO SCH ×2 (08:35→21:10)
[2016-11-02] MEDS: VANCOMYCIN INJ 1,000 MG in SODIUM CHLORIDE 0.9% 250 ML IV SCH (08:36)
--- NOTE | 2016-11-02 09:42 | Event Note ---
11/02/2016. Patient is afebrile continues to do well at this time with good wound care present. It is reported that there may be a plan for wound VAC for tomorrow. We'll maintain present care at this time.
[2016-11-02] MEDS: SODIUM HYPOCHLORITE 0.25% IRRIG 473 ML BOTTLE TOP SCH (13:00)
[2016-11-02] MEDS: NIFEdipine 10 MG CAPSULE PO PRN (23:31)
[2016-11-03 04:34] LABS: Calcium 7.6 MG/DL (8.5-10.1); Osmolality,Calculated 285.3 MOS/KG (273-304); Potassium 3.7 MMOL/L (3.5-5.1)
[2016-11-03] MEDS: VANCOMYCIN INJ 1,000 MG in SODIUM CHLORIDE 0.9% 250 ML IV SCH ×2 (05:09→22:13)
[2016-11-03] MEDS: CIPROFLOXACIN 500 MG TABLET PO SCH ×2 (09:35→22:16)
[2016-11-03] MEDS: glipiZIDE 5 MG TABLET PO SCH ×2 (09:35→17:05)
[2016-11-03] MEDS: amLODIPine 10 MG TABLET PO SCH (09:35)
[2016-11-03] MEDS: LISINOPRIL 20 MG TABLET PO SCH (09:35)
[2016-11-03] MEDS: PANTOPRAZOLE 40 MG TABLET PO SCH (09:36)
[2016-11-03] MEDS: INSULIN REGULAR 100 UNIT/ML SUBCUT SCH ×4 (09:36→22:00)
--- NOTE | 2016-11-03 09:43 | Event Note ---
lysis of left foot looks considerably better still have concerns about space between the first and second metatarsals I didn't think we can go ahead and place a wound VAC we'll do that bed using the white foam between the toes and over the dorsum of the foot where there is still some exposed tendon of the great foam and this is good and holding we'll let him return to [facility] tomorrow and I'll follow him in office next week
[2016-11-03] MEDS: SODIUM HYPOCHLORITE 0.25% IRRIG 473 ML BOTTLE TOP SCH (22:17)
[2016-11-04] MEDS: SODIUM HYPOCHLORITE 0.25% IRRIG 473 ML BOTTLE TOP SCH (09:32)
[2016-11-04] MEDS: CIPROFLOXACIN 500 MG TABLET PO SCH ×2 (09:39→21:35)
[2016-11-04] MEDS: glipiZIDE 5 MG TABLET PO SCH ×2 (09:39→16:39)
[2016-11-04] MEDS: amLODIPine 10 MG TABLET PO SCH (09:39)
[2016-11-04] MEDS: LISINOPRIL 20 MG TABLET PO SCH (09:39)
[2016-11-04] MEDS: PANTOPRAZOLE 40 MG TABLET PO SCH (09:40)
[2016-11-04] MEDS: INSULIN REGULAR 100 UNIT/ML SUBCUT SCH ×4 (09:40→21:33)
[2016-11-04] MEDS: VANCOMYCIN INJ 1,000 MG in SODIUM CHLORIDE 0.9% 250 ML IV SCH (14:36)
--- NOTE | 2016-11-04 16:57 | Event Note ---
Mr. Cannon is generally doing well wound VAC seems to help pressure has been unable to talk to the [facility] to arrange transfer I will do so in the morning
[2016-11-05 06:19] LABS: Calcium 8.5 MG/DL (8.5-10.1); Potassium 4.2 MMOL/L (3.5-5.1)
[2016-11-05] MEDS: VANCOMYCIN INJ 1,000 MG in SODIUM CHLORIDE 0.9% 250 ML IV SCH (09:06)
[2016-11-05] MEDS: INSULIN REGULAR 100 UNIT/ML SUBCUT SCH ×3 (09:10→16:28)
[2016-11-05] MEDS: CIPROFLOXACIN 500 MG TABLET PO SCH (09:11)
[2016-11-05] MEDS: glipiZIDE 5 MG TABLET PO SCH ×2 (09:11→16:28)
[2016-11-05] MEDS: LISINOPRIL 20 MG TABLET PO SCH (09:11)
[2016-11-05] MEDS: amLODIPine 10 MG TABLET PO SCH (09:11)
[2016-11-05] MEDS: PANTOPRAZOLE 40 MG TABLET PO SCH (09:11)
--- NOTE | 2016-11-05 09:59 | Discharge Summary ---
Hospital Course - Hospital Course Hospital Course: Wesley a 56-year-old [place] male was admitted with a necrotizing fasciitis involving the dorsum of his left foot this appeared to originate from a small puncture wound with a retained piece of glass on the plantar surface of the foot is not sure when that had occurred tunneled from the plantar surface between the first and second metatarsals and the dorsal foot were necrotizing fasciitis this was a mixed culture with Enterobacter enterococcus and MRSA but has responded to debridement wound care he's on Cipro and vancomycin like to continue vancomycin for 2 weeks which will be completed on November 09 I would continue him with Cipro for another 2 weeks. He currently has a wound VAC continue arrange transfer to the [facility] to continue that therapy. I'll plan to see him in the office next week my thoughts are to develop good granulation bed and then do skin grafting to the dorsum foot sometime in the next 2-4 weeks Diagnosis - Discharge Diagnosis (1) Diabetes mellitus with foot ulcer and gangrene Status: Acute Specialty Discharge - Follow Up or Referrals Follow up with: Nitesh High MD [Physician] - Discharge Plan - Discharge Data Disposition: Swing Bed W Planned Readmit Condition at Discharge: Stable Discharge Diet: diabetic diet Activity: no prolonged standing Hygiene: keep area(s) dry Weight Bearing at Discharge: weight bear as tolerated Wound / Dressing Care Instructions: wound vac as ordered - Discharge Medications New Ciprofloxacin Tab [Cipro Tab] 500 mg PO Q12HR tablet Insulin Regular [HumuLIN R] See Protocol SUBCUT ACHS injection glipiZIDE [Glucotrol] 5 mg PO BIDAC tablet HYDROcodone/ACETAMIN 7.5-325 [[place] 7.5-325] 2 tablet PO Q4H PRN #0 tablet PRN Reason: Pain Moderate (4-7) HYDROcodone/ACETAMIN 7.5-325 [[place] 7.5-325] 1 tablet PO Q4H PRN #0 tablet PRN Reason: Pain Moderate (4-7) Lisinopril [Prinivil] 20 mg PO DAILY tablet NIFEdipine CAP [Procardia] 10 mg PO Q4H PRN #0 capsule PRN Reason: Hypertension Vancomycin Inj 1,000 mg IV Q18H vial amLODIPine [Norvasc] 10 mg PO DAILY tablet Discontinued Lisinopril [Prinivil] 20 mg PO DAILY #30 tablet amLODIPine [Norvasc] 5 mg PO DAILY #30 tablet - Follow Up or Referral Follow Up: Nitesh High MD [Physician] - 1 Week - Forms/Instructions Exam - Constitutional Vitals: Period Temp Pulse Resp BP Sys/Garcia Pulse Ox Last 24 Hr 98.4 F-99.0 F 89-94 17-20 117-139/61-78 99-100 Discharge Results Labs on day of discharge: Labs from last 24 hours 11/05/16 11/05/16 11/04/16 07:15 05:17 20:36 Sodium 143 Potassium 4.2 Chloride 106 Carbon Dioxide 27 Anion Gap 14.2 BUN 23 H Creatinine 1.30 GFR Calculation 66 BUN/Creatinine Ratio 17.00 Glucose 152 H POC Glucose 165 H 268 H Calculated Osmolality 291.0 Calcium 8.5 11/04/16 11/04/16 15:57 11:11 Sodium Potassium Chloride Carbon Dioxide Anion Gap BUN Creatinine GFR Calculation BUN/Creatinine Ratio Glucose POC Glucose 172 H 185 H Calculated Osmolality Calcium DS: Provider Date of admission: 10/23/16 18:48 Primary care physician: Kevin Bello MD Attending physician on admission: Nitesh High MD Consults: 10/28/16 11:51 Consult to Case Mgmt/Social Srvs [CONS] Routine Reason for Case Mgmt/Social Srvs: LTAC 10/23/16 20:11 Consult to Pharmacy [CONS] Routine Reason for Pharmacy Consult: Adjust Meds Renal Funct Dose/Manage Vancomycin 10/24/16 11:10 Consult to Physician [CONS] Routine Comment: diabetic care;previously undiagnosed Consulting Provider: Consulting Provider Notified: Yes When should Consulting Provider be notified: Now Consult to Specialist Group: Hospitalist Person Notified: chas james Date Notified: 10/24/16 Time Notified: 11:30 Consult to Wound Care - [place] [CONS] Routine Reason for Wound Care: Wound Care Management Discharging clinician: Nitesh High MD
[2016-11-05] MEDS: SODIUM HYPOCHLORITE 0.25% IRRIG 473 ML BOTTLE TOP SCH (10:33)
[2016-11-05 16:52] VITALS: BP 127/71
== END 2016-11-05 16:50 | disposition swing bed, planned readmission (89) | DRG 981 ==
LOC: EDUNIT# → EDBD → N.ED 17:41 → N.EDINP 18:48 → N.3E 19:23
PROVIDERS: ADMIT Surgery; ATTEND Surgery

== ENCOUNTER 2017-06-08 10:45 | Inpatient (IN) ==
[2017-06-08] MEDS ORDERED: GLUCAGON 1 MG VIAL IM PRN (17:01)
[2017-06-08] MEDS ORDERED: DEXTROSE 50% 25 GM/50 ML SYRINGE IV PRN (17:01)
[2017-06-08] MEDS ORDERED: ACETAMINOPHEN 325 MG TABLET PO PRN (17:09)
[2017-06-08] MEDS ORDERED: ONDANSETRON 4 MG/2 ML VIAL IV PRN (17:09)
--- NOTE | 2017-06-08 17:21 | General Surg History&Physical ---
Assessment and Plan (1) Cellulitis of left anterior lower leg Status: Acute Assessment and plan: This point I do not detect any obvious abscess necrosis or other indications for debridement. I am going to continue the vancomycin and Zosyn that he was receiving at the [facility] I will start a K pad and elevation although he is not at strict bedrest. I am going to ask hospitalist service to help with control of his hypertension and diabetes. I am going to x-ray the leg and foot to look for any retained foreign bodies or change in the bone that might indicate a deeper source of infection. I explained what I thought was going on with Mr. Cannon and he agrees with this plan Current Visit: Yes History of Present Illness Chief complaint: cellulitis left lower leg History of present illness: Mr. Cannon is a 57 year old male Mr. Cannon is a 57-year-old man on whom I met last October 23 was a necrotizing fasciitis involving the dorsum of his left foot this apparently originated from a piece of glass that had been embedded under his second toe this was treated with debridement and IV antibiotic eventually this actually healed in a skin graft was placed in November 2016. Patient been doing well but apparently over the weekend developed swelling and redness of his left lower leg and was admitted to the [facility] I spoke with Dr. Hampton today and he had been there on Zosyn and vancomycin for 4 days was not showing as much improvement as she would like and she had concerns about further debridement being needed and asked that he be transferred here and I have accepted. Mr. Cannon does not recall any particular incident occurring to the leg any injury or burn he has not noted any drainage his blood sugars have been under reasonable control. Home Medications Medication Instructions Recorded Confirmed Type Lisinopril [Prinivil] 20 mg PO DAILY tablet 12/03/16 06/08/17 Rx Gabapentin 300 mg PO TID 04/07/17 06/08/17 History Simvastatin 20 mg PO QPM 04/07/17 06/08/17 History amLODIPine [Norvasc] 10 mg PO DAILY 04/07/17 06/08/17 History glipiZIDE [Glipizide] 5 mg PO BID 04/07/17 06/08/17 History Propylene Glycol [Systane Balance] 1 drop BOTH EYES QID PRN 06/08/17 06/08/17 History Ranitidine Tab [Zantac Tab] 150 mg PO BEDTIME 06/08/17 06/08/17 History Sennosides/Docusate Sodium 1 each PO BID 06/08/17 06/08/17 History [Kimberly-Colace Tablet] Allergies Allergy/AdvReac Type Severity Reaction Status Date / Time aspirin Allergy ANAPHYLAXIS Verified 06/08/17 14:23 Medical,Surgical,& Family Hx - Medical History Cardio: History of: Hypertension Psychological: History of: Psychiatric/Substance Abuse Tx (ALCOHOL ABUSE) Neurology: History of: Seizures Endocrine: History of: Diabetes Mellitus (NIDDM) (patient reports to me that he is not diabetic) Other: History of: Miscellaneous Medical Problems (sinus problems) - Family History Family History: Reports;: Family Diabetes, Family Hypertension - Social History Smoking Status: Never smoker Frequency of Alcohol Use: Frequently Type of Drug Use: None Exam - Constitutional Vitals: Period Temp Pulse Resp BP Sys/Garcia Pulse Ox Last 24 Hr 97.2 F-98.3 F 78-82 18-20 159-159/82-92 100-100 General appearance: normal weight, no acute distress - Head Head exam: Present: normal inspection - Eye Eye exam: Present: EOMI Pupils: Present: ALFREDO - ENT ENT exam: Present: normal external ear exam Mouth exam: Present: normal voice - Neck Neck exam: Present: normal inspection - Respiratory Respiratory exam: Present: clear to auscultation bilaterally - Cardiovascular Cardiovascular exam: Present: carotid bruit (I hear no carotid bruits), RRR - GI/Abdominal GI/Abdominal exam: Present: soft - Expanded Left Lower Lower leg exam: Present: swelling, erythema Ankle exam: Present: swelling, erythema Foot/Toe exam: Present: swelling, erythema (There is a well-healed skin graft site on the dorsum of the left foot with no significant ulcerations a very slight perhaps 5-6 mm ulceration on the very distal portion. There appears to be about of 1-1/2 cm neurotrophic ulcer on the plantar surface of the foot under the first metatarsal that does not suggest acute infection. I can detect no fluctuance gas or others gross abnormality in the foot. I am not certain I can palpate pedal pulses but he has an excellent posterior popliteal pulse) Gait: Present: not tested/not observed - Back Exam Back exam: Present: normal inspection - Neurological Exam Neurological exam: Present: alert, oriented X3 Speech: Present: normal - Skin Skin exam: Present: normal color 12 point system: reviewed and no additional remarkable complaints except as stated
[2017-06-08] MEDS ORDERED: POLYVINYL ALCOHOL 1.4% OPH SOLN 15 ML BOTTLE BOTH EYES PRN (17:30)
[2017-06-08] MEDS: PIPERACILLIN/TAZOBACTAM 3,375 MG in SODIUM CHLORIDE 0.9% 100 ML IV SCH (17:46)
--- NOTE | 2017-06-08 17:55 | XRay Report ---
Exam: XR foot 3V LT Date: 06/08/2017 5:15 PM Comparison: 10/24/2016 Indication: Cellulitis Technique:[AP, oblique, and lateral right foot] Findings: Soft tissue swelling. Progressive periosteal thickening involving the second metatarsal and the proximal phalanx of the second toe. Progressive but somewhat chronic appearing volume loss in the distal first second metatarsal. No acute fracture identified. Impression: Progressive periosteal thickening involving the second metatarsal and the proximal phalanx of the second toe which can be seen with progressive changes related to chronic osteomyelitis. Progressive bone loss involving the distal second metatarsal which may be post operative or related to the osteomyelitis. No acute fracture identified. PROCEDURE INTERPRETED AT [facility] DEPARTMENT OF RADIOLOGY Final Report Signed by: Dr. Dara Aguirre
--- NOTE | 2017-06-08 17:56 | XRay Report ---
Exam: XR tibia fibula LT Date: 06/08/2017 5:15 PM Comparison: None Indication: Cellulitis Technique:[AP and lateral right tibia/fibula] Findings: Joint space narrowing with sclerosis and osteophytes. Soft tissue swelling with arterial calcifications. No fracture, dislocation, or periosteal thickening. Impression: Moderate DJD with soft tissue swelling and arterial calcifications. No fracture or dislocation. PROCEDURE INTERPRETED AT [facility] DEPARTMENT OF RADIOLOGY Final Report Signed by: Dr. Dara Aguirre
[2017-06-08 18:24] LABS: Basophils # 0.1 10*3/uL (0.0-0.2); Basophils % 0.8 % (0.0-0.8); Eosinophils # 0.4 10*3/uL (0.0-0.87); Eosinophils % 6.1 % (0.00-10.9); Hematocrit 31.9 VOL% (42.0-52.0); Hemoglobin 10.8 GM/DL (14.0-18.0); Immature Granulocytes Absolute 0.06 #; Lymphocytes # 1.8 10*3/uL (1.4-4.0); Lymphocytes % 30.5 % (21.2-54.2); Mean Corpuscular HGB Conc 33.9 GM/DL (32-36); Mean Corpuscular Hemoglobin 31 PG (27-34); Mean Corpuscular Volume 91.7 FL (87-102); Mean Platelet Volume 9.6 FL (9.6-12.0); Monocytes # 0.6 10*3/uL (0.11-0.8); Monocytes % 10.3 % (1.7-12.7); Neutrophils % 51.3 % (38.7-73.9); Platelet Count 265 T/CUMM (130-400); Red Blood Count 3.48 MC/CUMM (3.8-5.5); Red Cell Distribution Width 12.5 % (9.3-17.3); White Blood Count 5.9 T/CUMM (4-12)
--- NOTE | 2017-06-08 18:45 | Hospitalist Consult Note ---
Assessment and Plan - Time spent with patient Time spent with patient: Greater than 30 minutes (1) Cellulitis of left anterior lower leg Status: Acute Assessment and plan: Patient admitted to Dr. High for further evaluation and treatment. Current Visit: Yes (2) Diabetes Status: Acute Assessment and plan: Accu-Cheks ACHS. Sliding scale insulin as appropriate. Check hemoglobin A1c. Consult diabetic education. Current Visit: No Qualifiers: Diabetes mellitus type: type 2 (3) HTN (hypertension) Status: Acute Assessment and plan: Continue home medications. Current Visit: No History of Present Illness - Data of Consult Patient: new to practice - Consult Narrative Reason for consult: Diabetic Management History of present illness: Mr. Cannon is a 57 year old [place] male with a past medical history significant for NIDDM, HTN and cellutitis of the foot presents as a transfer from [facility] for further evaluation of cellulitis of the left foot. The patient developed an apparent swelling and redness of his left lower extremity over the weekend, was seen and treated at [facility] with no improvement, and was subsequently transferred here to Dr. High's service. On exam, Mr. Cannon was standing at bedside in no apparent distress. He does not recall any particular events that led to recurrence of his cellulitis. He only notes that "the redness came back". He has no complaints otherwise. We have been consulted for diabetic management. Labs were still pending at the time of this note, however, POC glucose is 145. This case has been discussed with Dr. Bueno, consulting physician, and we will follow along with this patient throughout his hospitalization. Thank you for the consult. CC: Nitesh High MD - Home Medications and Allergies Home Medications: Home Medications Medication Instructions Recorded Confirmed Type Lisinopril [Prinivil] 20 mg PO DAILY tablet 12/03/16 06/08/17 Rx Gabapentin 300 mg PO TID 04/07/17 06/08/17 History Simvastatin 20 mg PO QPM 04/07/17 06/08/17 History amLODIPine [Norvasc] 10 mg PO DAILY 04/07/17 06/08/17 History glipiZIDE [Glipizide] 5 mg PO BID 04/07/17 06/08/17 History Propylene Glycol [Systane Balance] 1 drop BOTH EYES QID PRN 06/08/17 06/08/17 History Ranitidine Tab [Zantac Tab] 150 mg PO BEDTIME 06/08/17 06/08/17 History Sennosides/Docusate Sodium 1 each PO BID 06/08/17 06/08/17 History [Kimberly-Colace Tablet] Allergies/Adverse Reactions: Allergies Allergy/AdvReac Type Severity Reaction Status Date / Time aspirin Allergy ANAPHYLAXIS Verified 06/08/17 14:23 Medical,Surgical,& Family Hx - Medical History Cardio: History of: Hypertension Psychological: History of: Psychiatric/Substance Abuse Tx (ALCOHOL ABUSE) Neurology: History of: Seizures Endocrine: History of: Diabetes Mellitus (NIDDM) (patient reports to me that he is not diabetic) Other: History of: Miscellaneous Medical Problems (sinus problems) - Family History Family History: Reports;: Family Diabetes, Family Hypertension - Social History Smoking Status: Never smoker Frequency of Alcohol Use: Frequently Type of Drug Use: None Marital Status: Lives With:: Alone Functional capacity: independent ambulation - Constitutional Constitutional: Absent: anorexia, chills, fatigue, weakness - EENT Eyes: Absent: blurry vision, loss of vision Ears: Absent: decreased hearing, ear pain - Cardiovascular Cardiovascular: Absent: chest pain at rest, chest pain with activity, dyspnea, dyspnea on exertion, edema - Respiratory Respiratory: Absent: cough, dyspnea, wheezing, snoring - Gastrointestinal Gastrointestinal: Absent: abdominal pain, change in bowel habits, constipation, diarrhea, nausea, vomiting - Genitourinary Genitourinary: Absent: difficulty urinating, flank pain, hematuria, nocturia - Musculoskeletal Musculoskeletal: Absent: back pain, muscle weakness, myalgias - Neurological Neurological: Present: numbness. Absent: abnormal gait, confusion, dizziness - Psychiatric Psychiatric: Absent: anxiety, confusion, depression - Endocrine Endocrine: Absent: cold intolerance, heat intolerance - Hematologic/Lymphatic Hematologic/Lymphatic: Absent: easy bleeding, easy bruising Exam - Constitutional Vitals: Period Temp Pulse Resp BP Sys/Garcia Pulse Ox Last 24 Hr 97.2 F-98.3 F 78-82 18-20 159-159/82-92 100-100 Exam: General appearance: overweight, no acute distress - Head Head exam: Present: normocephalic, atraumatic - Eye Eye exam: Present: EOMI. Absent: conjunctival injection, nystagmus Pupils: Present: ALFREDO, normal accommodation - ENT ENT exam: Present: normal exam, normal external ear exam - Neck Neck exam: Present: normal inspection. Absent: lymphadenopathy, tenderness, thyromegaly - Respiratory Respiratory exam: Present: clear to auscultation bilaterally. Absent: rales, rhonchi, wheezes - Cardiovascular Cardiovascular exam: Present: regular rate and rhythm. Absent: carotid bruit, gallop, rubs - GI/Abdominal GI/Abdominal exam: Present: normal bowel sounds. Absent: ascites, distended, mass - Extremities Exam Extremities exam: Present: normal inspection, normal capillary refill, left foot bandaged, dry and intact, erythematous left lower leg. Absent: edema - Back Exam Back exam: Absent: CVA tenderness (L), CVA tenderness (R) - Neurological Exam Neurological exam: Present: alert, oriented X3, CN II-XII intact, reflexes normal - Psychiatric Psychiatric exam: Present: normal affect, normal mood - Skin Skin exam: Present: normal color, warm, dry Results - Labs Labs: Labs still pending
[2017-06-08 18:49] LABS: Apearance,Urine CLEAR (Clear); Bilirubin,Urine Negative (Negative); Blood, Urine Negative (Negative); Glucose,Urine (UA) Negative (Negative); Ketones,Urine Negative (Negative); Nitrite,Urine Negative (Negative); Protein,Urine Negative; RBC,Urine 1 /HPF (0-4); Squamous Epithelial Cell,Urine Occasional /HPF (0-10); Urine Color Straw (Yellow); Urine Specific Gravity 1.004 (1.001-1.035); Urine Urobilinogen < 2.0 EU/DL (0.2-1.0); WBC,Urine 3 /HPF (0-6)
[2017-06-08 18:54] LABS: Alanine Aminotransferase 40 U/L (16-61); Albumin 3.4 G/DL (3.4-5.0); Alkaline Phosphatase 99 U/L (45-117); Aspartate Amino Transferase 31 U/L (0-37); Bilirubin,Total < 0.39 MG/DL (0.2-1.0); Blood Urea Nitrogen 10 MG/DL (7-18); Calcium 8.9 MG/DL (8.5-10.1); Glucose 142 MG/DL (74-106); Osmolality,Calculated 270.1 MOS/KG (273-304); Potassium 3.7 MMOL/L (3.5-5.1); Sodium 135 MMOL/L (136-145); Total Protein 8.2 G/DL (6.4-8.3)
[2017-06-08] MEDS: glipiZIDE 5 MG TABLET PO SCH (20:34)
[2017-06-08] MEDS: DOCUSATE/SENNA 50-8.6 MG TABLET PO SCH (20:34)
[2017-06-08] MEDS: FAMOTIDINE 20 MG TABLET PO SCH (20:34)
[2017-06-08] MEDS: GABAPENTIN 300 MG CAPSULE PO SCH (20:34)
[2017-06-08] MEDS: SIMVASTATIN 20 MG TABLET PO SCH (20:34)
[2017-06-08] MEDS: VANCOMYCIN INJ 1,250 MG in SODIUM CHLORIDE 0.9% 250 ML IV SCH (21:34)
[2017-06-09] MEDS: PIPERACILLIN/TAZOBACTAM 3,375 MG in SODIUM CHLORIDE 0.9% 100 ML IV SCH ×3 (01:17→16:35)
[2017-06-09] MEDS: glipiZIDE 5 MG TABLET PO SCH ×2 (08:23→20:47)
[2017-06-09] MEDS: amLODIPine 10 MG TABLET PO SCH (08:24)
[2017-06-09] MEDS: DOCUSATE/SENNA 50-8.6 MG TABLET PO SCH ×2 (08:24→20:48)
[2017-06-09] MEDS: LISINOPRIL 20 MG TABLET PO SCH (08:24)
[2017-06-09] MEDS: GABAPENTIN 300 MG CAPSULE PO SCH ×3 (08:24→20:48)
[2017-06-09] MEDS: FONDAPARINUX 2.5 MG/0.5 ML SYRINGE SUBCUT SCH (11:19)
[2017-06-09] MEDS: VANCOMYCIN INJ 1,250 MG in SODIUM CHLORIDE 0.9% 250 ML IV SCH ×2 (11:20→21:39)
--- NOTE | 2017-06-09 14:47 | Hospitalist Progress Note ---
Assessment and Plan (1) Cellulitis of left anterior lower leg Status: Acute Assessment and plan: Continue vancomycin and Zosyn. Current Visit: Yes (2) HTN (hypertension) Status: Acute Assessment and plan: Not controlled continue Norvasc 10 mg p.o. daily, will add losartan 25 mg daily Current Visit: No (3) Diabetes Status: Acute Assessment and plan: Hemoglobin A1c 7.4 continue glipizide 5 mg p.o. twice daily, will add metformin. Current Visit: No Qualifiers: Diabetes mellitus type: type 2 Hospitalist: Subjective Interval history: Patient's left leg was wrapped I was unable to see the wound. Dr. High is managing the cellulitis. We will be managing his diabetes and hypertension. Patient had no complaints today Exam - Constitutional Vitals: Period Temp Pulse Resp BP Sys/Garcia Pulse Ox Last 24 Hr 98.3 F-99.4 F 77-84 18-20 137-159/74-92 98-100 Exam: Heart Rate-[RRR] Lungs-[CTAB] GI-[+bs soft, NT] Ext-[left leg wrapped Neuro [Motor 5/5], [alert and oriented times 3] psych [normal mood and affect] General [no acute distress] Results - Labs CBC & BMP: 06/08/17 17:55 06/08/17 17:55 Lab Results: I have reviewed the past 24 hour labs Labs: Hemoglobin A1c 7.4. Blood sugars and in the 160s-250s. UA is negative for infection - Diagnostic Findings Procedure: X-ray: report reviewed by me, pending (Foot x-ray progressive periosteal thickening of the second metatarsal in the proximal phalanx of the second toe which can be seen with chronic osteomyelitis, tib-fib films showed moderate DJD soft tissue swelling.) Quality Measures - VTE Contraindication to Mechanical VTE Prophylaxis: Ischemic Vascular Disease
[2017-06-09] MEDS: LOSARTAN 25 MG TABLET PO SCH (15:19)
[2017-06-09] MEDS: metFORMIN 500 MG TABLET PO SCH (16:35)
[2017-06-09] MEDS: SIMVASTATIN 20 MG TABLET PO SCH (18:02)
--- NOTE | 2017-06-09 18:05 | Event Note ---
Mr. Cannon foot actually looks a bit better today less swollen as does his lower leg still has some swelling and particularly at the base of the second toe x- ray reveals some bony changes there but this is not clearly osteomyelitis acute normal could be chronic osteomyelitis. I have spoken with Dr. Aguirre and reviewed the CT the x-ray and question whether bone scan would be appropriate or MR and she recommends MR as the bone scan will probably be positive due to the relatively recent infection and changes that are present from that. I will order an MR of the left foot for tomorrow
--- NOTE | 2017-06-09 18:40 | XRay Report ---
Exam: XR orbits for mri Date: 06/09/2017 6:00 PM Comparison: None Indication: Evaluate for metallic foreign body Technique:[3 view orbits] Findings: No metallic foreign body in the orbital location. Impression: No metallic foreign body in the orbital location. PROCEDURE INTERPRETED AT [facility] DEPARTMENT OF RADIOLOGY Final Report Signed by: Dr. Dara Aguirre
[2017-06-09] MEDS: FAMOTIDINE 20 MG TABLET PO SCH (20:48)
[2017-06-10] MEDS: PIPERACILLIN/TAZOBACTAM 3,375 MG in SODIUM CHLORIDE 0.9% 100 ML IV SCH ×3 (01:15→17:39)
--- NOTE | 2017-06-10 11:22 | Hospitalist Progress Note ---
Assessment and Plan (1) Cellulitis of left anterior lower leg Status: Acute Assessment and plan: Continue vancomycin and Zosyn. MRI in am Current Visit: Yes (2) HTN (hypertension) Status: Acute Assessment and plan: continue Norvasc 10 mg and losartan 25 mg daily Current Visit: No (3) Diabetes Status: Acute Assessment and plan: Hemoglobin A1c 7.4 continue glipizide 5 mg p.o. twice daily and metformin. Current Visit: No Qualifiers: Diabetes mellitus type: type 2 Hospitalist: Subjective Interval history: Patient reports his pain is better today. Blood sugars have ranged from 160- 202. Exam - Constitutional Vitals: Period Temp Pulse Resp BP Sys/Garcia Pulse Ox Last 24 Hr 98.0 F-98.5 F 71-80 18-20 118-159/50-87 98-100 Exam: Heart Rate-[RRR] Lungs-[CTAB] GI-[+bs soft, NT] Ext-[left leg wrapped Neuro [Motor 5/5], [alert and oriented times 3] psych [normal mood and affect] General [no acute distress] Results - Labs CBC & BMP: 06/08/17 17:55 06/08/17 17:55 Lab Results: I have reviewed the past 24 hour labs Quality Measures - VTE Contraindication to Mechanical VTE Prophylaxis: Ischemic Vascular Disease
[2017-06-10] MEDS: metFORMIN 500 MG TABLET PO SCH ×2 (11:53→17:39)
[2017-06-10] MEDS: DOCUSATE/SENNA 50-8.6 MG TABLET PO SCH ×2 (11:54→21:28)
[2017-06-10] MEDS: amLODIPine 10 MG TABLET PO SCH (11:54)
[2017-06-10] MEDS: LOSARTAN 25 MG TABLET PO SCH (11:54)
[2017-06-10] MEDS: glipiZIDE 5 MG TABLET PO SCH ×2 (11:54→21:28)
[2017-06-10] MEDS: GABAPENTIN 300 MG CAPSULE PO SCH ×3 (11:54→21:28)
[2017-06-10] MEDS: LISINOPRIL 20 MG TABLET PO SCH (11:54)
[2017-06-10] MEDS: VANCOMYCIN INJ 1,250 MG in SODIUM CHLORIDE 0.9% 250 ML IV SCH ×2 (12:10→22:32)
[2017-06-10] MEDS: FONDAPARINUX 2.5 MG/0.5 ML SYRINGE SUBCUT SCH (12:10)
--- NOTE | 2017-06-10 13:45 | Event Note ---
Davis is generally doing well but could not hold still for the MRI I am going to try some Ativan to see if that will help him relax and get the MRI of the foot interested in determining whether or not there is any chronic osteomyelitis of the right second toe overall he appears to be doing better with less infection but still not completely cleared still some swelling and erythema I will continue the current regimen of antibiotics until I see what we have on the MRI
[2017-06-10] MEDS ORDERED: LORazepam 1 MG TABLET PO ONE (14:03)
[2017-06-10] MEDS: SIMVASTATIN 20 MG TABLET PO SCH (19:19)
[2017-06-10] MEDS: FAMOTIDINE 20 MG TABLET PO SCH (21:28)
[2017-06-11] MEDS: PIPERACILLIN/TAZOBACTAM 3,375 MG in SODIUM CHLORIDE 0.9% 100 ML IV SCH ×3 (01:32→18:35)
[2017-06-11] MEDS: LOSARTAN 25 MG TABLET PO SCH (09:42)
[2017-06-11] MEDS: glipiZIDE 5 MG TABLET PO SCH ×2 (09:42→20:40)
[2017-06-11] MEDS: LISINOPRIL 20 MG TABLET PO SCH (09:42)
[2017-06-11] MEDS: GABAPENTIN 300 MG CAPSULE PO SCH ×3 (09:42→20:40)
[2017-06-11] MEDS: DOCUSATE/SENNA 50-8.6 MG TABLET PO SCH ×2 (09:42→20:40)
[2017-06-11] MEDS: amLODIPine 10 MG TABLET PO SCH (09:42)
[2017-06-11] MEDS ORDERED: LORazepam 1 MG TABLET PO ONE (10:00)
[2017-06-11] MEDS ORDERED: BISACODYL 5 MG TABLET PO PRN (10:14)
[2017-06-11] MEDS: metFORMIN 500 MG TABLET PO SCH ×2 (11:06→17:04)
[2017-06-11] MEDS: FONDAPARINUX 2.5 MG/0.5 ML SYRINGE SUBCUT SCH (11:07)
--- NOTE | 2017-06-11 11:49 | Hospitalist Progress Note ---
Assessment and Plan (1) Cellulitis of left anterior lower leg Status: Acute Assessment and plan: Continue vancomycin and Zosyn. MRI today Current Visit: Yes (2) HTN (hypertension) Status: Acute Assessment and plan: continue Norvasc 10 mg and increase losartan 50 mg daily Current Visit: No (3) Diabetes Status: Acute Assessment and plan: Hemoglobin A1c 7.4 continue glipizide 5 mg p.o. twice daily and increase metformin 1000 mg po bid. Current Visit: No Qualifiers: Diabetes mellitus type: type 2 Hospitalist: Subjective Interval history: Patient still not having good bowel movements will give him a Dulcolax. His abdomen is getting a little distended. We are still waiting for the MRI of his leg. Exam - Constitutional Vitals: Period Temp Pulse Resp BP Sys/Garcia Pulse Ox Last 24 Hr 97.5 F-98.9 F 73-79 16-18 145-194/82-92 96-100 Exam: Heart Rate-[RRR] Lungs-[CTAB] GI-[+bs soft, NT] Ext-[left leg wrapped Neuro [Motor 5/5], [alert and oriented times 3] psych [normal mood and affect] General [no acute distress] Results - Labs CBC & BMP: 06/08/17 17:55 06/08/17 17:55 Lab Results: I have reviewed the past 24 hour labs Quality Measures - VTE Contraindication to Mechanical VTE Prophylaxis: Ischemic Vascular Disease
[2017-06-11] MEDS ORDERED: LOSARTAN 50 MG TABLET PO SCH (11:51)
--- NOTE | 2017-06-11 13:13 | Event Note ---
Mr. Cannon is afebrile and doing reasonably well the MRI is not completed with the pictures that I am seeing here on do not show an obvious abscess or clear osteomyelitis to me. I will see what the final report there is but I may be able to let him go home tomorrow on p.o. antibiotics
--- NOTE | 2017-06-11 14:01 | Magnetic Resonance Report ---
MRI of the left foot without contrast. Indication: Possible osteomyelitis of the second proximal phalanx and metatarsal. The study is markedly limited due to the patient's inability to remain still. There is very limited resolution present and multiple attempts were made. No contrast was administered due to the limited overall nature of the images being obtained. There is enough information to demonstrate cellulitis involving the second ray. However, on this limited exam, no marrow edema is identified to suggest active osteomyelitis. No discrete fluid collection can be identified. There is no joint effusion. Impression: Focal cellulitis along the second ray. PROCEDURE INTERPRETED AT [facility] DEPARTMENT OF RADIOLOGY Final Report Signed by: Dr. Ailin Brock
[2017-06-11] MEDS: VANCOMYCIN INJ 1,250 MG in SODIUM CHLORIDE 0.9% 250 ML IV SCH ×2 (16:05→22:51)
[2017-06-11] MEDS: SIMVASTATIN 20 MG TABLET PO SCH (18:45)
[2017-06-11] MEDS: FAMOTIDINE 20 MG TABLET PO SCH (20:39)
[2017-06-12] MEDS: PIPERACILLIN/TAZOBACTAM 3,375 MG in SODIUM CHLORIDE 0.9% 100 ML IV SCH ×2 (01:33→09:32)
[2017-06-12] MEDS: GABAPENTIN 300 MG CAPSULE PO SCH ×2 (09:30→14:31)
[2017-06-12] MEDS: DOCUSATE/SENNA 50-8.6 MG TABLET PO SCH (09:30)
[2017-06-12] MEDS: metFORMIN 500 MG TABLET PO SCH (09:30)
[2017-06-12] MEDS: amLODIPine 10 MG TABLET PO SCH (09:31)
[2017-06-12] MEDS: glipiZIDE 5 MG TABLET PO SCH (09:31)
--- NOTE | 2017-06-12 10:14 | Hospitalist Progress Note ---
Assessment and Plan (1) Cellulitis of left anterior lower leg Status: Acute Assessment and plan: Continue vancomycin and Zosyn. Possibly home today. Defer antibiotics to Dr. High Current Visit: Yes (2) HTN (hypertension) Status: Acute Assessment and plan: continue Norvasc 10 mg and losartan 50 mg daily Current Visit: No (3) Diabetes Status: Acute Assessment and plan: Hemoglobin A1c 7.4 continue glipizide 5 mg p.o. twice daily and metformin 1000 mg po bid. Current Visit: No Qualifiers: Diabetes mellitus type: type 2 Hospitalist: Subjective Interval history: Patient feeling good today had a bowel movement. Leg is wrapped. Dr. High will be by today decide if he could go home Exam - Constitutional Vitals: Period Temp Pulse Resp BP Sys/Garcia Pulse Ox Last 24 Hr 98.0 F-98.5 F 72-95 18-20 132-166/82-92 96-100 Exam: Heart Rate-[RRR] Lungs-[CTAB] GI-[+bs soft, NT] Ext-[left leg wrapped Neuro [Motor 5/5], [alert and oriented times 3] psych [normal mood and affect] General [no acute distress] Results - Labs CBC & BMP: 06/08/17 17:55 06/08/17 17:55 Lab Results: I have reviewed the past 24 hour labs - Diagnostic Findings Procedure: MRI: report reviewed by me (Cellulitis but no evidence of osteomyelitis) Quality Measures - VTE Contraindication to Mechanical VTE Prophylaxis: Ischemic Vascular Disease
--- NOTE | 2017-06-12 10:29 | Discharge Summary ---
Hospital Course - Hospital Course Hospital Course: Davis is a 57-year-old man from Dr. mathews referred down by Dr. Hampton with an cellulitis of his left lower leg and foot. Last September he had been admitted with a necrotizing soft tissue infection of the dorsum of his foot secondary to stepping on a piece of glass which was still embedded in the foot behind below the second metatarsal this undergone debridement and skin grafting and done well. He was admitted to the [facility] late last week with cellulitis started on vancomycin and Zosyn and then transferred down due to concerns of further debridement was necessary. I did not see evidence of lesions that needed debridement there was a good bit of swelling at the base of the second toe a plain x-ray was not clear for osteomyelitis we attempted to get an MRI but due to motion it was a somewhat limited but did not show clear evidence of osteomyelitis. His leg is markedly improved the swelling is gone down the erythema is gone down he is feeling better blood sugars are under fair control. I am going to go ahead and discharge him and put him on Bactrim DS 1 twice daily I am asking him not to ambulate extensively outside the home he should not return to work I will see him in the office in 2 weeks. Diagnosis - Discharge Diagnosis (1) Cellulitis of left anterior lower leg Status: Acute Specialty Discharge - Follow Up or Referrals Follow up with: Nitesh Hgih MD [Physician] - 06/22/17 2:45 pm Discharge Plan - Discharge Data Disposition: Disch To Home/Self Care Condition at Discharge: Stable Discharge Diet: diabetic diet Activity: other (Asking him to limit his ambulation to in the house or just in the yard a bit but not extensive walking outside of the home) Hygiene: no restrictions Weight Bearing at Discharge: weight bear as tolerated Driving: no restrictions Contact your physician if you experience:: fever over 101, Redness or swelling - Discharge Medications New HYDROcodone/ACETAMIN 7.5-325 [[place] 7.5-325] 1 tablet PO Q4H PRN #30 tablet PRN Reason: Pain Moderate (4-7) Losartan [Cozaar] 50 mg PO DAILY #30 tablet metFORMIN [Glucophage] 1,000 mg PO BID W/MEALS #60 tablet Continue Simvastatin 20 mg PO QPM Ranitidine Tab [Zantac Tab] 150 mg PO BEDTIME Propylene Glycol [Systane Balance] 1 drop BOTH EYES QID PRN PRN Reason: Dry Eyes amLODIPine [Norvasc] 10 mg PO DAILY #30 tablet Gabapentin 300 mg PO TID #90 tablet glipiZIDE [Glipizide] 5 mg PO BID #60 tablet Sennosides/Docusate Sodium [Kimberly-Colace Tablet] 1 each PO BID Discontinued Lisinopril [Prinivil] 20 mg PO DAILY tablet - Follow Up or Referral Follow Up: Nitesh High MD [Physician] - 06/22/17 2:45 pm - Forms/Instructions Exam - Constitutional Vitals: Period Temp Pulse Resp BP Sys/Garcia Pulse Ox Last 24 Hr 98.0 F-98.5 F 72-95 18-20 132-166/82-92 96-100 Discharge Results Labs on day of discharge: Labs from last 24 hours 06/12/17 06/11/17 06/11/17 06:45 20:39 15:33 POC Glucose 144 H 248 H 198 H 06/11/17 10:57 POC Glucose 224 H DS: Provider Date of admission: 06/08/17 17:09 Primary care physician: Kevin Bello MD Attending physician on admission: Nitesh High MD Consults: 06/08/17 15:06 Consult to Pastoral Services [CONS] Routine Comment: Pastoral Screen: Request Seam [place] Visit Grief Over Loss Pastoral Screen Source of Request: Patient Other Source Requesting: MOTHER PASSED IN DECEMBER 2016 06/08/17 17:12 Consult to Physician [CONS] Routine Comment: help with diabetic controll, hypertension Consulting Provider: Nikolay Bueno Consulting Provider Notified: Yes When should Consulting Provider be notified: Now Consult to Specialist Group: Hospitalist When should Consulting Provider be notified: Now Person Notified: lionel called Date Notified: 06/08/17 Time Notified: 17:44 06/08/17 18:51 Consult to Diabetes [facility], Educator [CONS] Routine Reason for Bioprocessing Manufacturing Technician: Diabetes Education 06/08/17 19:39 Consult to Pharmacy [CONS] Routine Reason for Pharmacy Consult: Dose/Manage Vancomycin Discharging clinician: Nitesh High MD
[2017-06-12] MEDS: VANCOMYCIN INJ 1,250 MG in SODIUM CHLORIDE 0.9% 250 ML IV SCH (12:08)
[2017-06-12] MEDS: FONDAPARINUX 2.5 MG/0.5 ML SYRINGE SUBCUT SCH (12:09)
[2017-06-12 16:03] VITALS: BP 146/94
== END 2017-06-12 15:57 | disposition home or self-care (01) | DRG 603 ==
LOC: N.3E 13:46
PROVIDERS: ADMIT Surgery; ATTEND Surgery